=== PATIENT | male | born 1970 | race Caucasian/White ===

== ENCOUNTER 2016-09-27 11:38 | Emergency (ER) | payer SELFPAY ==
[2016-09-27 11:42] VITALS: TEMP 97.3
--- NOTE | 2016-09-27 12:07 | EDPHY ---
H & P Time Seen by Provider: 09/27/16 12:07 HPI/ROS: CHIEF COMPLAINT: I think I had a stroke on Tuesday HISTORY OF PRESENT ILLNESS: This 46-year-old man presents with concerns about his brain. He recently had friends who were diagnosed with various neurological illnesses include multiple sclerosis, carotid artery dissection, intracranial bleeding. He was [place] snowboarding at [employer] on Tuesday at 10:00 a.m. when he was trying to catch up with 2 friends and had an onset of occipital headache on the right side. It lasted 10 minutes severity and then started to become better. However persisted and he still feels some tightness in the part of his head currently. It never completely went away. Not worst of life, but he was concerned because of all these other people he knows with recent neurologic problems. REVIEW OF SYSTEMS: Eye: He had some associated visual symptoms at the time of the headache which resulted in him having difficulty with near vision and having to hold things further way from his eyes to focus. No diplopia and no aura. ENT: no sore throat, no dental or ear pain. He does describe a clicking in his right ear which only occurs when he lies on his left side. Cardiac: no chest pain or syncope Pulmonary: no cough or SOB Abdomen: no vomiting, diarrhea, abdominal pain Musculoskeletal: no back pain and no neck pain, no recent fall or recent trauma. No acceleration deceleration or rotational injuries. Skin: no rash Neuro: No weakness or numbness in extremities, no dizziness or vertigo, no ataxia. He has had intermittent headache symptoms, sometimes on the right and sometimes on the left, intermittently all during 2015. This led to negative brain MRI in April 2016 through his PCP, by his report. Constitutional: no fever : no urinary symptoms A comprehensive 10 point review of systems is otherwise negative aside from elements mentioned in the history of present illness. PAST MEDICAL HISTORY: Includes alcoholism and cirrhosis, colonoscopy with polyp removal. Discharge summary for chest pain dated 02/04/2012 personally reviewed by myself. Social history: No alcohol for the last 4 days General Appearance: Alert and conversant, cooperative. Eyes: No scleral icterus. Extraocular motion intact, pupils 3 mm and reactive , no nystagmus. ENT, Mouth: Normal mucous membranes. Normal tympanic membranes, normal pharynx , no trismus, no facial swelling or tenderness. Respiratory: Normal respiratory effort, breath sounds equal, lungs are clear to auscultation. Cardiovascular: Regular rate and rhythm. Gastrointestinal: Abdomen is soft and non tender. Neurological: Alert and oriented x3. Normally conversant. Face symmetric, normal movement and sensation in all extremities. Not ataxic. Negative Romberg. Normal [id number] bilaterally and no pronator drift. Skin: Warm and dry, no rashes. Musculoskeletal: normal ROM of neck. Psychiatric: Slightly anxious, otherwise normal. Emergency department course/MDM: I think the patient is unlikely to have acute intracranial mass. He had an MRI of his brain in April 2016 which he tells me was normal. Carotid or vertebral dissection is considered but I think it is unlikely. Currently has a normal neurologic exam with no symptoms except for slight posterior right tightness, not even a headache. Subarachnoid hemorrhage or sentinel bleed considered, think unlikely. He is also worried he has diabetes. Plan for i-STAT, noncontrast head CT. 1245: Sodium 140, glucose 99, creatinine 0.8, hematocrit 44. 1312: Results and follow-up plan discussed with patient, including referral to neurology. Smoking Status: Never smoked Constitutional: Initial Vital Signs Temperature (C) 36.3 C 09/27/16 11:39 Heart Rate 54 L 09/27/16 11:39 Respiratory Rate 14 09/27/16 11:39 Blood Pressure 130/82 H 09/27/16 11:39 O2 Sat (%) 98 09/27/16 11:39 O2 Delivery Mode Room Air Allergies/Adverse Reactions: Penicillins Allergy (Severe, Verified 08/09/12 12:17) Hives Home Medications: Medication Instructions Recorded NK [No Known Home Meds] 09/27/16 Medical Decision Making - Diagnostics Imaging: Head CT negative except for slight sinus disease, viewed independently by myself on the computer system, reviewed with Dr. Teto Mendiola at 1:02 p.m. Differential Diagnosis: Differential diagnosis considered for headache including but not limited to subarachnoid hemorrhage, migraine headache, tension headache and infectious causes such as meningitis, pharyngitis and sinusitis. - Data Points Laboratory Results: 09/27/16 12:35 POC Hgb 15.0 gm/dL (14.5-17.3) POC Hct 44 % (42.8-50.6) POC Sodium 140 mEq/L (134-144) POC Potassium 4.1 mEq/L (3.3-5.0) POC Chloride 102 mEq/L (96-108) POC BUN 17 mg/dL (7-23) POC Creatinine 0.8 mg/dL (0.8-1.5) POC Glucose 99 mg/dL (70-100) Point of Care Test Results: 09/27/16 12:35 POC Sodium 140 POC Potassium 4.1 POC Chloride 102 POC BUN 17 POC Creatinine 0.8 POC Glucose 99 Departure - Departure Disposition: Home, Routine, Self-Care Clinical Impression: Headache Condition: Good Instructions: Acute Headache (ED) Referrals: Mik Hollis MD [Primary Care Provider] - As per Instructions Teto Santana DO [Doctor of Osteopathy] - 5-7 days, call for appt. (neurology referral)
--- NOTE | 2016-09-27 13:07 | CT ---
CT Scan of Head (Without Contrast) Clinical Indications: Headache. Technique: Axial CT images were acquired from foramen magnum through vertex, without intravenous con trast. Soft tissue and bone windows were reviewed on the computer workstation. Images were reconstr ucted down to 1.25-mm images. Dose reduction techniques were utilized. Findings: No mass lesions are seen, and there is no evidence of intracranial hemorrhage or acute inf arct. The ventricles and subarachnoid spaces are normal in size for this age group. Bone windows re veal no sign of fracture. The visualized paranasal sinuses and mastoid air cells are free of consoli dation, except for minimal maxillary sinus disease in the inferior right maxillary sinus. Impression: Normal CT of the head. Minimal right inferior maxillary sinus disease. Critical results relayed by Dr. Teto Mendiola to Dr. Jacob Leal, on September 27, 2016 at 1304 hours.
[2016-09-27 13:56] VITALS: BP 117/79; PULSE 57; RESP 16; O2SAT 97
== END 2016-09-27 13:56 | disposition home or self-care (01) ==
DX: R51 Headache (principal)
CPT/HCPCS: 82947-QW